=== PATIENT | male | born 2000 ===

== ENCOUNTER → 2023-10-17 | Outpatient (REF) | payer MEDICAID, OTHER ==
[2023-10-17 17:34] LABS: MEAN CORPUSCULAR HEMOGLOBIN 28.3 pg (27.0-33.0); MEAN CORPUSCULAR HGB CONC 34.8 g/dl (32.0-36.5); MEAN CORPUSCULAR VOLUME 81.4 fl (80.0-96.0); PLATELET COUNT, AUTOMATED 168 10^3/uL (150-450); RED BLOOD COUNT 5.65 10^6/uL (4.30-6.10); WHITE BLOOD COUNT 9.5 10^3/uL (4.0-10.0)
[2023-10-17 17:54] LABS: INR 1.09; PROTHROMBIN TIME 13.8 SECONDS (12.5-14.5)
[2023-10-17 17:58] LABS: ALBUMIN 3.4 G/DL (3.2-5.2); ALKALINE PHOSPHATASE 139 U/L (46-116); ALT/SGPT 374 U/L (7.0-40); AST/SGOT 110 U/L (<34); BILIRUBIN,DIRECT 1.1 MG/DL (<0.4); BILIRUBIN,TOTAL 2.5 MG/DL (0.3-1.2); TOTAL PROTEIN 6.9 G/DL (5.7-8.2)
[2023-10-17 19:10] LABS: IMMUNOGLOBULIN A 160.5 MG/DL (40-350); IMMUNOGLOBULIN G 1761 MG/DL (650-1600)
== END ==
LOC: M LABDRAWC 16:42
PROVIDERS: ATTEND Pediatrics
DX: K75.4 Autoimmune hepatitis (principal)